=== PATIENT | male | born 1995 | race Caucasian/White ===

== ENCOUNTER 2018-09-25 14:30 | Emergency (ER) | payer SELFPAY ==
[~2018-09-25] VITALS: Ht 185.4 cm; Wt 65.9 kg
[2018-09-25 14:36] VITALS: Ht 185.4 cm; Wt 65.9 kg
[2018-09-25] MEDS ORDERED: CLONIDINE 0.1 MG/24 HR PATCH TRANSDERM ONE (15:30)
--- NOTE | 2018-09-25 15:54 | ERD ---
ER Documentation Chief Complaint Chief Complaint c/o feeling uneasy, shaky, drowsy. Needs clearance from detox center HPI This is a 22-year-old male with a history of opiate abuse who presents to the emergency room for medical clearance prior to entering rehab. The patient states that he did use fentanyl, methamphetamines, and heroin last night. Denies any chest pain shortness of breath but does state he has some nausea, and runny nose. ROS All systems reviewed and are negative except as per history of present illness. Allergies Allergies: Coded Allergies: No Known Allergy (Unverified , 09/25/18) PMhx/Soc History of Surgery: No Anesthesia Reaction: No Hx Neurological Disorder: No Hx Respiratory Disorders: No Hx Cardiac Disorders: No Hx Psychiatric Problems: No Hx Miscellaneous Medical Probl: No Hx Alcohol Use: Yes Hx Substance Use: Yes Hx Tobacco Use: No Smoking Status: Unknown if ever smoked Physical Exam Vitals Vital Signs Date Temp Pulse Resp B/P (MAP) Pulse Ox O2 O2 Flow FiO2 Time Delivery Rate 09/25/18 99.3 60 22 122/65 99 Room Air 15:29 (84) 09/25/18 99.3 114 22 145/63 99 14:36 (90) Physical Exam Const: No acute distress Head: Atraumatic Eyes: Normal Conjunctiva ENT: Rhinorrhea, normal External Ears, Nose and Mouth. Neck: Full range of motion. No meningismus. Resp: Clear to auscultation bilaterally Cardio: Regular rate and rhythm, no murmurs Abd: Soft, non tender, non distended. Normal bowel sounds Skin: No petechiae or rashes Back: No midline or flank tenderness Ext: No cyanosis, or edema Neur: Awake and alert Psych: Normal Mood and Affect Result Diagram: 09/25/18 1526 09/25/18 1526 Results 24 hrs Laboratory Tests Test 09/25/18 15:26 White Blood Count 7.9 10^3/ul Red Blood Count 5.06 10^6/ul Hemoglobin 14.5 g/dl Hematocrit 43.7 % Mean Corpuscular Volume 86.4 fl Mean Corpuscular Hemoglobin 28.7 pg Mean Corpuscular Hemoglobin Concent 33.2 g/dl Red Cell Distribution Width 12.0 % Platelet Count 348 10^3/UL Mean Platelet Volume 9.5 fl Immature Granulocytes % 0.100 % Neutrophils % 68.1 % Lymphocytes % 22.9 % Monocytes % 8.1 % Eosinophils % 0.3 % Basophils % 0.5 % Nucleated Red Blood Cells % 0.0 /100WBC Immature Granulocytes # 0.010 10^3/ul Neutrophils # 5.4 10^3/ul Lymphocytes # 1.8 10^3/ul Monocytes # 0.6 10^3/ul Eosinophils # 0.0 10^3/ul Basophils # 0.0 10^3/ul Nucleated Red Blood Cells # 0.0 10^3/ul Sodium Level 141 mmol/L Potassium Level 4.5 mmol/L Chloride Level 103 mmol/L Carbon Dioxide Level 26 mmol/L Anion Gap 12 Blood Urea Nitrogen 18 mg/dl Creatinine 0.93 mg/dl Est Glomerular Filtrat Rate mL/min > 60 mL/min Glucose Level 95 mg/dl Calcium Level 9.9 mg/dl Total Bilirubin 0.5 mg/dl Direct Bilirubin 0.00 mg/dl Indirect Bilirubin 0.5 mg/dl Aspartate Amino Transf (AST/SGOT) 29 IU/L Alanine Aminotransferase (ALT/SGPT) 27 IU/L Alkaline Phosphatase 75 IU/L Total Protein 8.3 g/dl Albumin 4.7 g/dl Globulin 3.60 g/dl Albumin/Globulin Ratio 1.30 Current Medications Medications Dose Sig/Raymundo Start Time Status Last (Trade) Ordered Route PRN Stop Time Admin Dose Reason Admin Clonidine 1 patch ONCE ONCE 09/25/18 DC 09/25/18 HCl TRANSDERM 15:30 15:39 ([facility]apres-Tts 09/25/18 15:31 1 Patch) Procedures/MDM This 22-year-old male presents to the emergency room for evaluation opiate withdrawal. On my exam the patient is alert oriented to person place and time, he is ambulate without difficulty. He did have some rhinorrhea however no signs of significant withdrawal. The patient's lab work does not demonstrate any acute electro light abnormalities. He was given a clonidine patch and will be discharged back into care of his rehab counselor Departure Diagnosis: Primary Impression: Drug withdrawal Condition: FAUSTINO Andrade DO Sep 25, 2018 15:54
[2018-09-25 16:02] VITALS: BP 124/64; PULSE 76; RESP 22
== END 2018-09-25 16:51 | disposition home or self-care (01) ==
LOC: EDBD 14:30 → E/R 14:30
DX: F11.23 Opioid dependence with withdrawal (principal)
CPT/HCPCS: 80053; 85025; 99283